=== PATIENT | female | born 1980 | race Caucasian/White ===

== ENCOUNTER 2016-06-25 00:22 | Emergency (ER) | payer OTHER ==
[~2016-06-25] VITALS: Ht 175.3 cm; Wt 238.1 kg
[2016-06-25 00:38] VITALS: BP 143/81
--- NOTE | 2016-06-25 01:18 | NUR ---
PT TAKEN TO FREDAY FROM [facility]
--- NOTE | 2016-06-25 03:25 | NUR ---
PT TAKEN TO BED 7
--- NOTE | 2016-06-25 03:40 | NUR ---
35Y F CAME TO ER C/O OF COUGH AND LOWER BACK PAIN. PT OBESE W/ HX OF GALLSTONE, ASTHMA, DM, HTN.
[2016-06-25] MEDS ORDERED: AMOXICILLIN 500 MG CAP PO ONE (03:50)
[2016-06-25] MEDS ORDERED: traMADol 50 MG TAB PO ONE (03:50)
[2016-06-25 04:48] VITALS: BP 152/84
--- NOTE | 2016-06-25 04:48 | NUR ---
Patient discharged with v/s stable. Written and verbal after care instructions given and explained. Patient alert, oriented and verbalized understanding of instructions. Ambulatory with steady gait. All questions addressed prior to discharge. ID band removed. Patient advised to follow up with PMD. Rx of AMOXICILLIN, PHENERGAN DM, ALBUTEROL INHALER given. Patient educated on indication of medication including possible reaction and side effects. Opportunity to ask questions provided and answered.
== END 2016-06-25 04:48 | disposition home or self-care (01) ==
LOC: MED 00:22
DX: J20.9 Acute bronchitis, unspecified (principal); E66.01 Morbid (severe) obesity due to excess calories; Z68.45 Body mass index [BMI] 70 or greater, adult; J45.909 Unspecified asthma, uncomplicated; E11.9 Type 2 diabetes mellitus without complications; I10 Essential (primary) hypertension
CPT/HCPCS: 71010; 99283

== ENCOUNTER 2016-08-30 00:05 | Emergency (ER) | payer OTHER ==
[~2016-08-30] VITALS: Ht 175.3 cm; Wt 235.4 kg
[2016-08-30 00:16] VITALS: BP 136/74
--- NOTE | 2016-08-30 01:48 | NUR ---
Dr. Sosa evaluating patient
[2016-08-30 02:14] LABS: BASOPHILS % (AUTO) 0.1 % (0.0-2.0); EOSINOPHILS # (AUTO) 0.5 K/uL (0-0.4); EOSINOPHILS % (AUTO) 3.6 % (0.0-4.0); HEMOGLOBIN 7.2 g/dL (12.0-16.0); LYMPHOCYTES # (AUTO) 0.5 K/uL (2.5-16.5); MEAN CORPUSCULAR HEMOGLOBIN 17 pg (27-31); MEAN CORPUSCULAR HGB CONC 29 g/dL (33-37); MONOCYTES % (AUTO) 0.1 % (1.7-9.3); NEUTROPHILS % (AUTO) 93.1 % (42.2-75.2); PLATELET COUNT (AUTO) 294 K/uL (140-450); RED BLOOD CELL COUNT(AUTO) 4.19 MIL/uL (4.20-5.40); RED CELL DISTRIBUTION WIDTH 19.8 % (11.6-13.7)
[2016-08-30 02:19] LABS: HEMATOCRIT 21.6 % (36-48); MEAN CORPUSCULAR VOLUME 59 fL (80-94)
[2016-08-30 02:20] LABS: LYMPHOCYTES % (AUTO) 3.1 % (20.5-51.1)
--- NOTE | 2016-08-30 02:32 | NUR ---
PT TAKEN TO BED 3
--- NOTE | 2016-08-30 02:35 | NUR ---
35 Y/O F W/C/O HEAVY VAGINAL BLEEDING, BACK AND LEG PAIN X 1 MTH. PT STATES RECEIVED A BLOOD TRASFUSION LAST MONDAY AT [facility] D/T HEAVY BLEEDING. MED HX DM, HTN, HYPOTHYROIDISM.
[2016-08-30] MEDS ORDERED: HYDROmorphone 1 MG/ML AMP IVP ONE ×2 (03:10→05:30)
[2016-08-30 03:43] LABS: PARTIAL THROMBOPLASTIN TIME 22.3 secs (22-35.6); PROTHROMBIN TIME 10.4 secs (10.8-13.4)
--- NOTE | 2016-08-30 05:20 | NUR ---
BLOOD TRANSFUSION BEGAN
--- NOTE | 2016-08-30 05:35 | NUR ---
VS STABLE; PT APPEARS TO BE TOLERATING TX WELL.
[2016-08-30] MEDS ORDERED: HYDROmorphone 1 MG/ML AMP ONE (05:38)
--- NOTE | 2016-08-30 05:45 | NUR ---
Consent signed per agreeing to administration of blood. Blood has been type and crossmatched. Blood sent from blood bank. Information on unit of blood checked against patient wristband at bedside by two nurses. All information matches. Patient or responsible libertarian informed of potential complications associated with blood transfusion. Informed of possible transfusion reaction symptoms. Aware of need to notify nurse at once of itching, shortness of breath, flushing, feeling of impending doom, or other symptoms not previously present. Vital signs taken within 5 minutes prior to initiation of transfusion. RN will remain with patient for first 15 minutes of transfusion at which time vital signs will be re-assessed.
--- NOTE | 2016-08-30 07:02 | NUR ---
Pt report given to JOHNNIE HOLDEN . Transfer of care at this time.
--- NOTE | 2016-08-30 07:14 | NUR ---
ON O2 AT 2L/MIN, PT AAO, BLOOD TRANSFUSION ONGOING WELL TOLERATED, NO SOB NOTED, SKIN WARM TO TOUCH RESP. EVEN AND UNLABORED, PT AWARE AFTER TRANSFUSION WILL GO HOME, PER PT SHE HAS SOMEONE TO PICK HER UP.WILL CHECK PT FREQUENTLY.
--- NOTE | 2016-08-30 07:56 | NUR ---
PT SLEEPING BLOOD TRANSFUSION ONGOING WELL TOLERATED,IV SITE INTACT, VITAL SIGN STABLE.
--- NOTE | 2016-08-30 08:06 | NUR ---
TALKED TO DR. OLGUIN ABOUT WBC 15,MD NO ORDER MADE
--- NOTE | 2016-08-30 08:33 | NUR ---
Pablo flores in [facility] - 08/30/16 at [email or web address] TO PHARMACY REGARDING THE MEDICINE NOT AVAILABLE IN ER
[2016-08-30] MEDS ORDERED: metFORMIN 500 MG TAB PO STA (09:01)
--- NOTE | 2016-08-30 09:03 | NUR ---
INFORMED DR. OLGUIN RESULT OF BS
--- NOTE | 2016-08-30 09:18 | NUR ---
TRANSFUSION FINISHED NO ADVERSE REACTION NOTED.
--- NOTE | 2016-08-30 09:18 | NUR ---
TALKED TO DR. OLGUIN PT WANTS PAIN MEDS
[2016-08-30] MEDS ORDERED: ACETAMINOPHEN EXTRA STRENGTH 500 MG TAB PO ONE (09:50)
--- NOTE | 2016-08-30 10:02 | NUR ---
PT CALLING FAMILY FOR D/C
--- NOTE | 2016-08-30 10:09 | NUR ---
ABLE TO CONSUMED 100 PERCENT OF HER MEALS, NO UNUSUAL OBSERVATION NOTED.
--- NOTE | 2016-08-30 10:15 | NUR ---
Patient discharged with v/s stable. Written and verbal after care instructions given and explained. Patient verbalized understanding. Wheel Chair Assisted to LOBBY, WILL WAIT FOR HER MOTHER. All questions addressed prior to discharge. Advised to follow up with PMD. PT AAO,NO DISTRESS NOTED.
[2016-08-30 10:16] VITALS: BP 119/61
== END 2016-08-30 10:15 | disposition home or self-care (01) ==
LOC: MED 00:05
DX: N93.9 Abnormal uterine and vaginal bleeding, unspecified (principal); D64.89 Other specified anemias; R07.89 Other chest pain; J45.909 Unspecified asthma, uncomplicated; E11.9 Type 2 diabetes mellitus without complications; I10 Essential (primary) hypertension; Z88.6 Allergy status to analgesic agent
CPT/HCPCS: 36415; 82948; 84484; 85025; 85610; 85730; 86886; 86900; 86901; 86920; 93005; 96374; 96376; 99285; J1170; J7030; P9016; 81025

== ENCOUNTER 2019-04-08 14:23 | Emergency (ER) | payer MEDICAID, OTHER ==
[~2019-04-08] VITALS: Ht 175.3 cm; Wt 182.8 kg
[2019-04-08 14:44] VITALS: BP 126/77
--- NOTE | 2019-04-08 14:57 | NUR ---
BIB SELF C/O BILAT HIP/THIGH PAIN THAT WRAPS AROUND TO FRONT ABDOMINAL AREA X3 DAYS. DENIES INJURY OR PROVOKING ACCIDENT. DENIES FLU-LIKE SYMPTOMS/ SOB/ CP. PAIN EXACERBATED WHEN PERFORMING ROM. BOWEL SOUNDS NORMOACTIVE IN ALL QUADRANTS. RESPIRATIONS ARE EVEN AND UNLABORED. AAOX4. PT HAS TEMPORAL HEADACHE, 10/10 PAIN + PHOTOSENSITIVITY. PMH: DIABETES, HTN, GASTRIC BYPASS SURGERY ALLERGIES: MOTRIN
[2019-04-08] MEDS ORDERED: MORPHINE SULFATE 4 MG/ML SYR IM ONE (15:10)
[2019-04-08] MEDS ORDERED: LEVOFLOXACIN 500 MG TAB PO ONE (15:10)
[2019-04-08] MEDS ORDERED: diphenhydrAMINE 50 MG/ML VIAL IM ONE (15:10)
--- NOTE | 2019-04-08 15:14 | NUR ---
PT AMBULATED TO BATHROOM AND PROVIDED URINE SAMPLE. DIP STICK SHOWN TO LALO PURDY.
[2019-04-08 15:45] LABS: APPEARANCE,URINE SL CLOUDY (CLEAR); BILIRUBIN,URINE NEGATIVE (NEGATIVE); BLOOD, URINE NEGATIVE (NEGATIVE); COLOR,URINE OTHER (YELLOW); LEUKOCYTE ESTERASE ,URINE 3+ (NEGATIVE); NITRITE, URINE NEGATIVE (NEGATIVE); UGLUCOSE NEGATIVE (NEGATIVE)
[2019-04-08 15:52] LABS: BARBITURATE, URINE NEG. ng/ml (NEG <=200); BENZODIAZEPINE, URINE NEG. ng/mL (NEG <=200); CANNABINOID, URINE NEG. ng/mL (NEG <=50); COCAINE, URINE NEG. ng/mL (NEG <=300); OPIATE, URINE POS. ng/mL (NEG <=2000); PHENCYCLIDINE SCREEN,URINE NEG. ng/mL (NEG <=25)
[2019-04-08 16:19] LABS: RBC,URINE NONE SEEN /HPF (0-5)
[2019-04-08 16:51] VITALS: BP 126/77
--- NOTE | 2019-04-08 16:52 | NUR ---
Patient discharged with v/s stable. Written and verbal after care instructions given and explained. Patient alert, oriented and verbalized understanding of instructions. Ambulatory with steady gait. All questions addressed prior to discharge. ID band removed. Patient advised to follow up with PMD. Rx of TRAMADOL, LEVAQUIN given. Patient educated on indication of medication including possible reaction and side effects. Opportunity to ask questions provided and answered.
== END 2019-04-08 16:52 | disposition home or self-care (01) ==
LOC: MED 14:23
DX: S33.5XXA Sprain of ligaments of lumbar spine, initial encounter (principal); N30.90 Cystitis, unspecified without hematuria; E66.01 Morbid (severe) obesity due to excess calories; E88.81 Metabolic syndrome and other insulin resistance; E11.9 Type 2 diabetes mellitus without complications; I10 Essential (primary) hypertension; E03.9 Hypothyroidism, unspecified; J45.909 Unspecified asthma, uncomplicated; Z68.43 Body mass index [BMI] 50.0-59.9, adult; Z88.8 Allergy status to other drugs, medicaments and biological substances; Z98.84 Bariatric surgery status; X58.XXXA Exposure to other specified factors, initial encounter; Y93.89 Activity, other specified; Y92.89 Other specified places as the place of occurrence of the external cause; Y99.8 Other external cause status
CPT/HCPCS: 80305; 81001; 81025; 87086; 87186; 96372; 99283; J1200; J2270

== ENCOUNTER 2021-03-04 16:28 | Emergency (ER) | payer MEDICAID ==
[~2021-03-04] VITALS: Ht 175.3 cm; Wt 208.7 kg
[2021-03-04 16:42] VITALS: BP 198/110
--- NOTE | 2021-03-04 16:59 | NUR ---
pt ambulated to bed 11
--- NOTE | 2021-03-04 17:21 | NUR ---
40 y/o female presents to ed with hypogastric pain and vaginal bleeding since 02/20/21. pt states she has been passing blood clots and soaks >10 pads per day. pain 10/10, cramping. denies n/v/d, dysuria. pt takes morphine which she is prescribed for her lower back pain. in ed, vss. abdomen soft, flabby. clear breath sounds. ermd made aware of pt status. pmh: gastric bypass, dm2, htn allergy: ibuprofen (facial swelling), vanilla (hives, swelling) med: metformin, enalapril
[2021-03-04 17:55] LABS: BASOPHILS # (AUTO) 0.1 K/uL (0.00-0.22); BASOPHILS % (AUTO) 0.8 % (0.0-2.0); EOSINOPHILS # (AUTO) 0.3 K/uL (0-0.4); EOSINOPHILS % (AUTO) 3.2 % (0.0-4.0); HEMATOCRIT 38.2 % (36-48); HEMOGLOBIN 12.1 g/dL (12.0-16.0); LYMPHOCYTES # (AUTO) 2.2 K/uL (2.5-16.5); LYMPHOCYTES % (AUTO) 24.6 % (20.5-51.1); MEAN CORPUSCULAR HEMOGLOBIN 24 pg (27-31); MEAN CORPUSCULAR HGB CONC 32 g/dL (33-37); MEAN CORPUSCULAR VOLUME 76.7 fL (80-94); MONOCYTES # (AUTO) 0.6 K/uL (0.8-1.0); MONOCYTES % (AUTO) 6.8 % (1.7-9.3); NEUTROPHILS # (AUTO) 5.9 K/uL (1.8-7.7); NEUTROPHILS % (AUTO) 64.6 % (42.2-75.2); PLATELET COUNT (AUTO) 237 K/uL (140-450); RED BLOOD CELL COUNT(AUTO) 4.97 MIL/uL (4.20-5.40); WHITE BLOOD COUNT (AUTO) 9.1 K/uL (4.8-10.8)
[2021-03-04] MEDS: MORPHINE SULFATE 4 MG/ML SYR IVP ONE (17:56)
[2021-03-04] MEDS: NACL 0.9% 1,000 ML IV ONE (17:56)
[2021-03-04 18:20] LABS: ALBUMIN 3.6 g/dL (3.4-5.0); CARBON DIOXIDE 26.5 mmol/L (21-32); CREATININE 0.7 mg/dL (0.6-1.3); POTASSIUM 3.5 mmol/L (3.5-5.1); TOTAL BILIRUBIN 0.2 mg/dL (0.0-1.0)
[2021-03-04 18:52] LABS: PROTHROMBIN TIME 10.4 secs (10.8-13.4)
[2021-03-04 19:58] VITALS: BP 198/110
--- NOTE | 2021-03-04 19:58 | NUR ---
Patient discharged with v/s stable. Written and verbal after care instructions given and explained. Patient verbalized understanding. Ambulatory with steady gait. All questions addressed prior to discharge. Advised to follow up with PMD.
== END 2021-03-04 19:58 | disposition home or self-care (01) ==
LOC: MED 16:28
DX: N93.9 Abnormal uterine and vaginal bleeding, unspecified (principal); M54.9 Dorsalgia, unspecified; J45.909 Unspecified asthma, uncomplicated; E11.9 Type 2 diabetes mellitus without complications; I10 Essential (primary) hypertension; E07.9 Disorder of thyroid, unspecified; Z88.6 Allergy status to analgesic agent; Z98.84 Bariatric surgery status
CPT/HCPCS: 36415; 80053; 84703; 85025; 85610; 85730; 86886; 86900; 86901; 96374; 99283; J2270; J7030

== ENCOUNTER 2022-04-12 09:34 | Emergency (ER) | payer MEDICAID ==
[~2022-04-12] VITALS: Ht 177.8 cm; Wt 176.9 kg
[2022-04-12 09:41] VITALS: BP 152/92
--- NOTE | 2022-04-12 10:01 | NUR ---
Dr. Sosa bedside.
[2022-04-12] MEDS ORDERED: MORPHINE SULFATE 4 MG/ML SYR IM ONE (10:10)
[2022-04-12 10:34] LABS: BASOPHILS # (AUTO) 0.1 K/uL (0.00-0.22); BASOPHILS % (AUTO) 0.8 % (0.0-2.0); EOSINOPHILS # (AUTO) 0.3 K/uL (0-0.4); EOSINOPHILS % (AUTO) 3.8 % (0.0-4.0); HEMATOCRIT 33.7 % (36-48); HEMOGLOBIN 10.6 g/dL (12.0-16.0); LYMPHOCYTES # (AUTO) 2.1 K/uL (2.5-16.5); LYMPHOCYTES % (AUTO) 25.7 % (20.5-51.1); MEAN CORPUSCULAR HEMOGLOBIN 24 pg (27-31); MEAN CORPUSCULAR HGB CONC 31 g/dL (33-37); MEAN CORPUSCULAR VOLUME 75.5 fL (80-94); MONOCYTES # (AUTO) 0.4 K/uL (0.8-1.0); NEUTROPHILS # (AUTO) 5.2 K/uL (1.8-7.7); NEUTROPHILS % (AUTO) 64.7 % (42.2-75.2); PLATELET COUNT (AUTO) 220 K/uL (140-450); RED BLOOD CELL COUNT(AUTO) 4.47 MIL/uL (4.20-5.40); RED CELL DISTRIBUTION WIDTH 18.8 % (11.6-13.7); WHITE BLOOD COUNT (AUTO) 8.1 K/uL (4.8-10.8)
[2022-04-12 10:48] LABS: ALBUMIN 3.5 g/dL (3.4-5.0); CREATININE 0.7 mg/dL (0.6-1.3); TOTAL BILIRUBIN 0.2 mg/dL (0.0-1.0)
[2022-04-12 11:47] LABS: APPEARANCE,URINE CLOUDY (CLEAR); BILIRUBIN,URINE 1+ (NEGATIVE); BLOOD, URINE 3+ (NEGATIVE); COLOR,URINE RED (YELLOW); LEUKOCYTE ESTERASE ,URINE NEGATIVE (NEGATIVE); NITRITE, URINE NEGATIVE (NEGATIVE); PH,URINE 5.5 (5.0-9.0); UGLUCOSE NEGATIVE (NEGATIVE)
[2022-04-12 12:00] LABS: RBC,URINE TOO NUMEROUS TO COUN /HPF (0-5); WBC,URINE 0-5 /HPF (0-5)
[2022-04-12] MEDS ORDERED: CYCL-711 PO (12:30)
--- NOTE | 2022-04-12 12:47 | NUR ---
Patient discharged with v/s stable. Written and verbal after care instructions given and explained. Patient alert, oriented and verbalized understanding of instructions. Ambulatory with steady gait. All questions addressed prior to discharge. ID band removed. Patient advised to follow up with PMD. Rx of FLEXERIL given. Patient educated on indication of medication including possible reaction and side effects. Opportunity to ask questions provided and answered.
== END 2022-04-12 12:47 | disposition home or self-care (01) ==
LOC: MED 09:34
DX: N93.8 Other specified abnormal uterine and vaginal bleeding (principal); J45.909 Unspecified asthma, uncomplicated; E03.9 Hypothyroidism, unspecified; I10 Essential (primary) hypertension; E11.9 Type 2 diabetes mellitus without complications; Z98.84 Bariatric surgery status; Z90.49 Acquired absence of other specified parts of digestive tract
CPT/HCPCS: 36415; 80053; 81001; 83690; 85025; 96372; 99283; J2270

== ENCOUNTER 2022-07-13 10:23 | Emergency (ER) | payer MEDICAID ==
[~2022-07-13] VITALS: Ht 175.3 cm; Wt 198.2 kg
[~2022-07-13 10:23] MED LIST: CYCL-711 PO
[2022-07-13 10:37] VITALS: BP 154/90
--- NOTE | 2022-07-13 10:44 | NUR ---
Pablo flores in [facility] - 07/13/22 at 1051 by [facility] TO ER [facility]
--- NOTE | 2022-07-13 10:48 | NUR ---
PT STATES SHE HAS BACK PAIN, URINARY SYMPTOMS, "PIMPLE NEAR BUTT CHEEK",. LAST SEEN BY DR. MCLAIN 1 WEEK AGO. STATES " I JUST WANTED TO GET CHECKED OUT AND I HAVE URINARY FREQUENCY AND DYSURIA.". COMFORT MEASURES AND SUPPORTIVE CARE INITIATED. PT STATES SHE DID TAKE ONE PILL OF PYRIDIUM ( POSSIBLY). PREP FOR ERMD EVAL.
--- NOTE | 2022-07-13 10:49 | NUR ---
TO ER BED 5
--- NOTE | 2022-07-13 11:08 | NUR ---
TO X-RAY VIA WC.
[2022-07-13] MEDS ORDERED: HYDROcodone/APAP 5/325 MG 1 TAB TAB PO ONE (11:10)
[2022-07-13] MEDS ORDERED: CEPH-588 PO (11:20)
[2022-07-13] MEDS ORDERED: CYCL-711 PO (11:20)
[2022-07-13] MEDS ORDERED: LID5T TP (11:20)
[2022-07-13 11:39] LABS: APPEARANCE,URINE CLEAR (CLEAR); BILIRUBIN,URINE NEGATIVE (NEGATIVE); BLOOD, URINE 1+ (NEGATIVE); COLOR,URINE YELLOW (YELLOW); LEUKOCYTE ESTERASE ,URINE 1+ (NEGATIVE); NITRITE, URINE POSITIVE (NEGATIVE); PH,URINE 5.5 (5.0-9.0); UGLUCOSE NEGATIVE (NEGATIVE)
[2022-07-13] MEDS ORDERED: PRED20TA5 PO (11:46)
[2022-07-13] MEDS ORDERED: ACYC400T14 PO (11:46)
[2022-07-13] MEDS ORDERED: PYR100 PO (11:46)
[2022-07-13 12:07] LABS: RBC,URINE 11-20 (MOD) /HPF (0-5)
== END 2022-07-13 12:19 | disposition home or self-care (01) ==
LOC: MED 10:23
DX: N39.0 Urinary tract infection, site not specified (principal); B02.9 Zoster without complications; G89.29 Other chronic pain; M54.50 Low back pain, unspecified; J45.909 Unspecified asthma, uncomplicated; E11.9 Type 2 diabetes mellitus without complications; I10 Essential (primary) hypertension; Z79.899 Other long term (current) drug therapy; Z79.2 Long term (current) use of antibiotics; Z88.6 Allergy status to analgesic agent; Z91.018 Allergy to other foods
CPT/HCPCS: 72100; 81001; 81025; 87086; 99284

== ENCOUNTER 2022-12-06 19:05 | Emergency (ER) | payer MEDICAID ==
[~2022-12-06 19:05] MED LIST changes: +ACYC400T14 PO; +CEPH-588 PO; +LID5T TP; +PRED20TA5 PO; +PYR100 PO
== END 2022-12-06 19:31 | disposition left against medical advice (07) ==
LOC: MED 19:05
DX: M79.669 Pain in unspecified lower leg (principal); Z53.21 Procedure and treatment not carried out due to patient leaving prior to being seen by health care provider

== ENCOUNTER 2023-07-05 13:11 | Emergency (ER) | payer MEDICAID, OTHER ==
[~2023-07-05] VITALS: Ht 177.8 cm; Wt 171.9 kg
[2023-07-05 13:34] VITALS: BP 130/75; PULSE 77; RESP 18; TEMP 97; O2SAT 96
[2023-07-05] MEDS ORDERED: PYR100 PO (14:40)
[2023-07-05] MEDS ORDERED: NITR100C7 PO (14:40)
[2023-07-05 14:58] VITALS: BP 125/82; PULSE 78; RESP 16; TEMP 98; O2SAT 99
[2023-07-05 15:03] LABS: BILIRUBIN,URINE NEGATIVE (NEGATIVE); BLOOD, URINE 2+ (NEGATIVE); COLOR,URINE YELLOW (YELLOW); LEUKOCYTE ESTERASE ,URINE NEGATIVE (NEGATIVE); NITRITE, URINE NEGATIVE (NEGATIVE); PROTEIN,URINE TRACE (NEGATIVE); UGLUCOSE NEGATIVE (NEGATIVE); UROBILINOGEN,URINE 0.2 EU/dL (0.2 - 1)
[2023-07-05 15:28] LABS: APPEARANCE,URINE CLOUDY (CLEAR); BACTERIA,URINE 10-30 (MOD) /HPF (None Seen); SQUAMOUS EPITHELIAL CELL,UR 4-10 (MOD) /LPF (0-3 (FEW))
== END 2023-07-05 14:58 | disposition home or self-care (01) ==
LOC: MED 13:11
DX: N39.0 Urinary tract infection, site not specified (principal); J45.909 Unspecified asthma, uncomplicated; E11.9 Type 2 diabetes mellitus without complications; I10 Essential (primary) hypertension; N28.9 Disorder of kidney and ureter, unspecified; Z79.4 Long term (current) use of insulin; Z79.899 Other long term (current) drug therapy; Z90.49 Acquired absence of other specified parts of digestive tract
CPT/HCPCS: 81001; 81025; 87086; 99283

== ENCOUNTER 2023-07-14 11:22 | Emergency (ER) | payer MEDICAID, OTHER ==
[~2023-07-14] VITALS: Ht 175.3 cm; Wt 172.4 kg
[~2023-07-14 11:22] MED LIST changes: +NITR100C7 PO
[2023-07-14 11:36] VITALS: BP 136/64; PULSE 63; RESP 17; TEMP 98.2; O2SAT 95
[2023-07-14] MEDS: IBUPROFEN 600 MG TAB PO ONE (12:32)
[2023-07-14 12:51] LABS: APPEARANCE,URINE CLEAR (CLEAR); BILIRUBIN,URINE NEGATIVE (NEGATIVE); BLOOD, URINE NEGATIVE (NEGATIVE); COLOR,URINE YELLOW (YELLOW); LEUKOCYTE ESTERASE ,URINE NEGATIVE (NEGATIVE); NITRITE, URINE NEGATIVE (NEGATIVE); PROTEIN,URINE NEGATIVE (NEGATIVE); UGLUCOSE NEGATIVE (NEGATIVE); UROBILINOGEN,URINE 0.2 EU/dL (0.2 - 1)
[2023-07-14] MEDS: ACETAMINOPHEN EXTRA STRENGTH 500 MG TAB PO ONE (12:51)
[2023-07-14] MEDS ORDERED: PHEN-1877 PO (12:57)
[2023-07-14] MEDS ORDERED: SULF-58 PO (12:57)
== END 2023-07-14 13:03 | disposition home or self-care (01) ==
LOC: MED 11:22
DX: R30.0 Dysuria (principal); R10.2 Pelvic and perineal pain; J45.909 Unspecified asthma, uncomplicated; E11.9 Type 2 diabetes mellitus without complications; I10 Essential (primary) hypertension; E03.9 Hypothyroidism, unspecified; Z79.1 Long term (current) use of non-steroidal anti-inflammatories (NSAID); Z79.899 Other long term (current) drug therapy
CPT/HCPCS: 81003; 81025; 99283